=== PATIENT | female | born 1990 | race Caucasian/White ===

== ENCOUNTER 2016-10-11 03:03 | Emergency (ER) | payer MEDICAID ==
[2016-10-11 03:27] LABS: BILIRUBIN,URINE NEGATIVE (NEGATIVE)
[2016-10-11 03:28] LABS: UA CHARGE (STRIP ONLY) YES; UR CULTURE IF IND NOT INDICATED
[2016-10-11 03:28] LABS: HCG UR QUAL POSITIVE
--- NOTE | 2016-10-11 04:56 | ED Physician Documentation ---
PD HPI FEMALE - Stated complaint Stated Complaint: CRAMPING,11W - Chief complaint Chief Complaint: Abd Pain - History obtained from History obtained from: Patient, Family - History of Present Illness Timing - onset: Yesterday Associated symptoms: Abdominal pain, Pelvic pain Contributing factors: OB-PHYSICIAN ANESTHESIOLOGIST History: G (4), P (2) Similar symptoms before: Has not had sx before Recently seen: Not recently seen - Additional information Additional information: Patient is a 26 year old female, 11 weeks by dates who is presenting to the emergency department for pelvic pain. Patient states that it started yesterday. It is intermittent and stabbing in nature. Patient states that she has not had these symptoms before. patient denies any vaginal bleeding or vaginal discharge Review of Systems Constitutional: denies: Fever, Chills Eyes: denies: Decreased vision Ears: denies: Ear pain, Drainage/discharge Nose: denies: Congestion Cardiac: denies: Chest pain / pressure Respiratory: denies: Cough GI: reports: Abdominal Pain, Nausea, Vomiting. denies: Constipation, Diarrhea : denies: Dysuria, Frequency, Hesitancy, Discharge, Vaginal bleeding Skin: denies: Rash, Lesions Neurologic: denies: Generalized weakness Immunocompromised: denies: Immunocompromised PD PAST MEDICAL HISTORY - Past Medical History Past Medical History: Yes Cardiovascular: None Respiratory: Asthma Neuro: None Endocrine/Autoimmune: None PHYSICIAN ANESTHESIOLOGIST: Endometriosis : None HEENT: None Psych: None Musculoskeletal: None Derm: None - Past Surgical History Past Surgical History: Yes General: Other Ortho: Other /PHYSICIAN ANESTHESIOLOGIST: Other - Present Medications Home Medications: Ambulatory Orders Medication Instructions Recorded Confirmed Doxylamine/Pyridoxine HCl 1 each PO BID #15 tablet. 10/11/16 [Mee Vazquez 10-10 mg Tablet] Pnv No.122/Iron/Folic Acid 1 mg PO DAILY 10/11/16 10/11/16 [ Multi Tablet] - Allergies Allergies/Adverse Reactions: Allergies Allergy/AdvReac Type Severity Reaction Status Date / Time acetaminophen [From Vicodin] AdvReac Anaphylaxis Verified 10/11/16 03:20 hydrocodone bitartrate * AdvReac Anaphylaxis Verified 10/11/16 03:20 [From Vicodin] Penicillins AdvReac Anaphylaxis Verified 10/11/16 03:20 - Social History Does the pt smoke?: No Smoking Status: Never smoker Does the pt drink ETOH?: No Does the pt have substance abuse?: No - Immunizations Immunizations are current?: Yes - POLST Patient has POLST: No PD ED PE NORMAL - Vitals Vital signs reviewed: Yes - General General: Alert and oriented X 3, No acute distress - HEENT HEENT: Atraumatic, PERRL, Moist mucous membranes, Pharynx benign - Neck Neck: Supple, no meningeal sign, No JVD - Cardiac Cardiac: RRR, No murmur - Respiratory Respiratory: No respiratory distress, Clear bilaterally - Abdomen Abdomen: Soft, Non tender, Non distended - Extremities Extremities: No deformity, No tenderness to palpate, No edema, No calf tenderness / cord - Neuro Neuro: Alert and oriented X 3, No motor deficit, No sensory deficit, Normal speech - Psych Psych: Normal mood, Normal affect PD ED PE EXPANDED - Abdomen Abdomen: No: Tender to palpation, Rebound, Guarding Results - Vitals Vitals: Vital Signs - 24 hr 10/11/16 03:12 Temperature 36.6 C Heart Rate 80 Respiratory 17 Rate Blood Pressure 123/76 O2 Saturation 100 Oxygen O2 Source Room air - Labs Labs: Laboratory Tests 10/11/16 10/11/16 03:10 03:24 Urine Color YELLOW Urine Clarity CLEAR Urine pH 6.0 Ur Specific [place] <1.005 <=1.005 Urine Protein NEGATIVE Urine Glucose (UA) NEGATIVE Urine Ketones NEGATIVE Urine Occult Blood NEGATIVE Urine Nitrite NEGATIVE Urine Bilirubin NEGATIVE Urine Urobilinogen 0.2 (NORMAL) Ur Leukocyte Esterase NEGATIVE Ur Microscopic Review NOT INDICATED Urine Culture Comments NOT INDICATED Urine HCG, Qual POSITIVE - Rads (name of study) pelvic ultrasound Radiology: Final report received (viable IUP 5 weeks by dates) PD MEDICAL DECISION MAKING - ED course Complexity details: reviewed results, re-evaluated patient, considered differential, d/w patient, d/w family ED course: Patient was seen and examined at bedside. Urine was collected and patient was sent for imaging. when patient returned the results were reviewed. there was a viable iup but hr was slow at 98. Patient was made aware of the findings and given detailed discharge and return instructions. Patient required no further work up and was stable for discharge with outpatient follow up. Departure - Departure Disposition: 01 Home, Self Care Clinical Impression: Abdominal pain affecting Condition: Good Instructions: ED Abdominal Pain Rule Out Ectopic Follow-Up: Patricia Veliz DO [Provider Admit Priv/Credential] - Prescriptions: Doxylamine/Pyridoxine HCl [Mee Vazquez 10-10 mg Tablet] 1 each PO BID #15 tablet. Comments: Your diagnostics today showed a live IUP. The heart rate was slower than normal so you should call Dr. Veliz's office by thursday to schedule a follow up appointment. You can take dicligis or bendaryl as well a caesar for nausea. You can take tylenol as needed for pain. You should try to stay well hydrated. You can return to the emergency department at any time for new,worsening or uncontrollable symptoms.
--- NOTE | 2016-10-11 05:35 | Ultrasound Preliminary Report ---
Exam: US OB First Trimester IMPRESSION: Single live intrauterine at 5 weeks 5 days by crown-rump length -- for an estim ated delivery date of 06/08/2017. [facility] SITE ID: [id number]
--- NOTE | 2016-10-11 05:38 | Ultrasound Report ---
REVISED: THIS REPORT WAS ORIGINALLY SIGNED ON 10/11/2016 @ 0538. ORDERS LINKED ON 12/02/2016. EXAM: FIRST TRIMESTER OBSTETRIC ULTRASOUND (Less than 11 weeks) EXAM DATE: 10/11/2016 05:03 AM. CLINICAL HISTORY: Abdominal cramp preg. LMP: 07/25/2016. COMPARISONS: None. TECHNIQUE: Transabdominal and transvaginal ultrasound examination with static image documentation. FINDINGS: Gestational Sac: An intrauterine fluid-filled sac contains both an embryo and yolk sac. Embryo: CRL (crown-rump length) measures 2 mm corresponding to an estimated gestational age of 5 weeks 5 days. Heart Rate: 98 Beats per minute. Placenta: Not visible at this gestational age. Uterus: Unremarkable anteverted appearance. Right Ovary: Volume 15 cc. Normal echotexture and blood flow. Left Ovary: Volume 3 cc. Normal echotexture and blood flow. Free Fluid: None. Other: None. IMPRESSION: Single live intrauterine at 5 weeks 5 days by crown-rump length -- for an estimated delivery date of 06/08/2017. [facility] Referring Provider Line: [phone] SITE ID: [id number]
[2016-10-11 05:48] VITALS: BP 118/56
== END 2016-10-11 05:50 | disposition home or self-care (01) ==
LOC: ED 03:03
DX: O26.891 Other specified pregnancy related conditions, first trimester (principal); Z3A.11 11 weeks gestation of pregnancy
CPT/HCPCS: 76801; 76830; 81001; 81003; 81025; 87086; 99283; 99284